=== PATIENT | female | born 2000 | race African-American/Black ===

== ENCOUNTER 2020-11-09 12:40 | Emergency (ER) | payer SELFPAY ==
[~2020-11-09] VITALS: Ht 170.2 cm; Wt 70.0 kg
[2020-11-09] MEDS ORDERED: IBUPROFEN 600MG TABLET PO STA (14:15)
[2020-11-09 14:28] LABS: CLARITY URINE CLOUDY (CLEAR); COLOR URINE YELLOW (YELLOW); KETONES URINE NEGATIVE (NEGATIVE); LEUKOCYTE ESTERASE URINE 2+ (NEGATIVE); NITRITE URINE NEGATIVE (NEGATIVE); OCCULT BLOOD URINE NEGATIVE (NEGATIVE); PH URINE 7.5 (4.5-8.0); PROTEIN URINE NEGATIVE (NEGATIVE); SPECIFIC GRAVITY URINE 1.004 (1.005-1.030); UROBILINOGEN URINE 0.2 E.U./dL (0.2-1.0)
[2020-11-09 15:00] VITALS: BP 120/78
== END 2020-11-09 15:00 | disposition home or self-care (01) ==
LOC: ER 12:40
DX: R51.9 Headache, unspecified (principal); N39.0 Urinary tract infection, site not specified; F12.10 Cannabis abuse, uncomplicated
CPT/HCPCS: 81003; 81025; 82962; 99283

== ENCOUNTER 2024-11-16 12:37 | Emergency (ER) | payer MEDICAID ==
[~2024-11-16] VITALS: Ht 172.7 cm; Wt 74.0 kg
[2024-11-16 12:42] VITALS: BP 112/67; TEMP 97.8; O2SAT 98
[2024-11-16 12:43] VITALS: PULSE 90; RESP 18; O2SAT 99
[2024-11-16 14:47] LABS: BASOPHILS % 0.6 % (0.0-2.0); EOSINOPHILS % 0.4 % (0.0-5.0); HEMATOCRIT. 44.3 % (36.0-48.0); LYMPHOCYTES % 28.5 % (20.0-50.0); MEAN CORPUSCULAR HEMOGLOBIN 31.2 pg (28.0-32.0); MEAN CORPUSCULAR HGB CONC 33.8 g/dL (31.0-37.0); MEAN CORPUSCULAR VOLUME 92.3 fL (81.0-99.0); MEAN PLATELET VOLUME 7.6 fl (7.4-10.4); NEUTROPHILS % 66.5 % (40.0-76.0); PLATELET 343 x1000/uL (130-400); WHITE BLOOD COUNT 9.2 x1000/uL (4.5-11.0)
[2024-11-16] MEDS: ONDANSETRON HCL 4MG/2ML INJ IV STA (14:52)
[2024-11-16] MEDS: SODIUM CHLORIDE 0.9% 1,000 ML IV ONE (14:52)
[2024-11-16 14:53] LABS: CHLORIDE 108 mEq/L (98-107); POTASSIUM 4.4 mEq/L (3.5-5.1); SODIUM 141 mEq/L (136-145)
[2024-11-16] MEDS: KETOROLAC 30MG/ML VIAL IV STA (14:53)
[2024-11-16 14:54] LABS: CALCIUM 9.5 mg/dL (8.7-10.4); CARBON DIOXIDE 25 mEq/L (21-32)
[2024-11-16 14:59] LABS: CREATININE 0.6 mg/dL (0.6-1.0); GLUCOSE 71 mg/dL (70-105); PROTHROMBIN TIME 11.4 sec (9.6-11.0); UREA NITROGEN BLOOD 7 mg/dL (9-23)
[2024-11-16 15:01] LABS: ALANINE AMINOTRANSFERASE 28 IU/L (10-49); ASPARTATE AMINOTRANSFERASE 21 IU/L (<34); BILIRUBIN DIRECT 0.2 mg/dL (<=3.0); BILIRUBIN TOTAL 0.5 mg/dL (0.1-1.0); PROTEIN TOTAL 6.9 g/dL (6.0-8.3)
[2024-11-16 15:02] LABS: HCG SCREEN NEGATIVE
== END 2024-11-16 16:46 | disposition home or self-care (01) ==
LOC: ER 12:37
DX: R10.9 Unspecified abdominal pain (principal); R11.2 Nausea with vomiting, unspecified; R19.7 Diarrhea, unspecified; F12.90 Cannabis use, unspecified, uncomplicated
CPT/HCPCS: 80076; 80048; 81025; 84703; 83690; 85025; 85610; 36415; 74176; 96361; 96374; 96375; 99285; J1885; J2405; J7030; Z7610 ×3

== ENCOUNTER 2025-11-20 18:19 | Emergency (ER) | payer MEDICAID ==
[~2025-11-20] VITALS: Ht 172.7 cm; Wt 80.0 kg
[2025-11-20 18:25] VITALS: O2SAT 100
[2025-11-20 18:42] VITALS: BP 110/57; PULSE 76; RESP 18; TEMP 36.7; O2SAT 100
[2025-11-20 19:28] LABS: BASOPHILS % 1.1 % (0.0-2.0); EOSINOPHILS % 1.3 % (0.0-5.0); HEMATOCRIT. 38.8 % (36.0-48.0); HEMOGLOBIN. 13.3 g/dL (12.0-16.0); LYMPHOCYTES % 24.8 % (20.0-50.0); MEAN PLATELET VOLUME 7.9 fl (7.4-10.4); MONOCYTES % 6.9 % (2.0-8.0); NEUTROPHILS % 65.9 % (40.0-76.0); PLATELET 364 x1000/uL (130-400); RED BLOOD CELL COUNT 4.25 mill/uL (4.2-5.4); RED CELL DISTRIBUTION WIDTH 13.2 % (11.6-14.6)
[2025-11-20 19:42] LABS: CREATININE 0.8 mg/dL (0.6-1.0); UREA NITROGEN BLOOD 7 mg/dL (9-23)
[2025-11-20 19:43] LABS: PROTEIN TOTAL 7.5 g/dL (6.0-8.3)
[2025-11-20 19:44] LABS: ASPARTATE AMINOTRANSFERASE 15 IU/L (<34); BILIRUBIN DIRECT 0.1 mg/dL (<=3.0)
[2025-11-20 19:45] LABS: BILIRUBIN TOTAL 0.4 mg/dL (0.1-1.0)
[2025-11-20 22:32] LABS: HCG SCREEN NEGATIVE
== END 2025-11-20 23:12 | disposition left against medical advice (07) ==
LOC: ER 18:19
DX: R11.2 Nausea with vomiting, unspecified (principal)
CPT/HCPCS: 36415; 80048; 80076; 80320; 84703; 85025; 99281; 99291; G0480